=== PATIENT | male | born 1975 ===

== ENCOUNTER → 2016-09-07 | Outpatient (REF) | payer BC | LOC: M LAB REF 16:07 | PROVIDERS: ATTEND Internal Medicine | DX: E22.1 Hyperprolactinemia (principal) ==

== ENCOUNTER → 2017-04-26 | Outpatient (REF) | payer BC, OTHER | LOC: M LAB REF 11:58 | PROVIDERS: ATTEND Internal Medicine | DX: E29.1 Testicular hypofunction (principal) ==

== ENCOUNTER → 2017-10-14 | Outpatient (REF) | payer OTHER ==
[2017-10-14 15:18] LABS: PROLACTIN 13.1 NG/ML (2.1-17.7)
[2017-10-16 00:07] LABS: TESTOSTERONE FREE (DIRECT) 6.1 pg/mL (6.8-21.5)
== END ==
LOC: M LAB REF 13:12
DX: E29.1 Testicular hypofunction (principal); E22.1 Hyperprolactinemia